=== PATIENT | female | born 1955 | race Asian ===

== ENCOUNTER 2017-02-24 12:13 | Outpatient (CLI) | payer OTHER ==
[2017-02-24 13:51] LABS: POTASSIUM 3.8 mmol/L (3.6-5.2); SODIUM 134 mmol/L (136-145)
== END 2017-02-24 13:13 | disposition home or self-care (01) ==
LOC: LABW 12:13
PROVIDERS: Physician Assistant
DX: E78.4 Other hyperlipidemia (principal); E87.6 Hypokalemia; E03.8 Other specified hypothyroidism
CPT/HCPCS: 36415; 80053; 80061; 84439; 84443

== ENCOUNTER 2017-06-13 08:50 | Outpatient (CLI) | payer OTHER ==
[2017-06-13 09:58] LABS: POTASSIUM 3.9 mmol/L (3.6-5.2); SODIUM 137 mmol/L (136-145)
[2017-06-13 10:20] LABS: PLATELET COUNT 343 K/uL (152-353)
== END 2017-06-13 09:50 | disposition home or self-care (01) ==
LOC: LABW 08:50
PROVIDERS: Obstetrics & Gynecology
DX: I10 Essential (primary) hypertension (principal); Z79.899 Other long term (current) drug therapy; Z51.81 Encounter for therapeutic drug level monitoring
CPT/HCPCS: 36415; 80053; 80061; 82670; 83001; 83090; 84144; 84402; 84403; 85027

== ENCOUNTER 2017-06-24 12:29 | Outpatient (CLI) | payer OTHER | END 2017-06-24 19:08 | disposition home or self-care (01) | LOC: RAD 12:29 | DX: M25.511 Pain in right shoulder (principal) ==

== ENCOUNTER 2017-06-26 08:33 | Outpatient (CLI) | payer OTHER | END 2017-06-26 19:55 | disposition home or self-care (01) | LOC: MAMMO 08:33 | DX: Z12.31 Encounter for screening mammogram for malignant neoplasm of breast (principal) | CPT/HCPCS: G0202-TC ==

== ENCOUNTER 2017-07-14 10:50 | Outpatient (CLI) | payer OTHER | END 2017-07-14 19:36 | disposition home or self-care (01) | LOC: MAMMO 10:50 | DX: R92.8 Other abnormal and inconclusive findings on diagnostic imaging of breast (principal) | CPT/HCPCS: G0206-TC ==

== ENCOUNTER 2017-09-17 11:59 | Outpatient (CLI) | payer OTHER | END 2017-09-17 13:00 | disposition home or self-care (01) | LOC: LABW 11:59 | DX: M10.071 Idiopathic gout, right ankle and foot (principal) | CPT/HCPCS: 36415; 84550; 85651 ==

== ENCOUNTER 2017-10-22 09:09 | Outpatient (CLI) | payer OTHER ==
[2017-10-22 09:41] LABS: PLATELET COUNT 350 K/uL (152-353)
[2017-10-22 09:57] LABS: POTASSIUM 3.5 mmol/L (3.6-5.2); SODIUM 139 mmol/L (136-145)
== END 2017-10-22 19:33 | disposition home or self-care (01) ==
LOC: LABW 09:09
PROVIDERS: Podiatrist
DX: Z01.818 Encounter for other preprocedural examination (principal); Z51.81 Encounter for therapeutic drug level monitoring
CPT/HCPCS: 36415; 80053; 85002; 85027; 93005

== ENCOUNTER 2017-12-12 11:18 | Outpatient (CLI) | payer OTHER | END 2017-12-12 19:31 | disposition home or self-care (01) | LOC: LABW 11:18 | DX: E03.8 Other specified hypothyroidism (principal) | CPT/HCPCS: 36415; 84439; 84443 ==

== ENCOUNTER 2018-09-03 09:14 | Emergency (ER) | payer OTHER ==
[~2018-09-03] VITALS: Ht 160 cm; Wt 81.6 kg
[2018-09-03 09:20] VITALS: TEMP 98.2
[2018-09-03 10:04] LABS: PLATELET COUNT 205 K/uL (152-353)
[2018-09-03 10:20] LABS: POTASSIUM 3.4 mmol/L (3.6-5.2)
[2018-09-03 10:30] VITALS: BP 125/79
== END 2018-09-03 11:30 | disposition home or self-care (01) ==
LOC: ED 09:14
DX: L02.818 Cutaneous abscess of other sites (principal)
CPT/HCPCS: 36415; 80053; 85027; 96372; 99283; J0696

== ENCOUNTER 2018-09-25 09:51 | Outpatient (CLI) | payer OTHER | END 2018-09-25 21:12 | disposition home or self-care (01) | LOC: LABW 09:51 | DX: K64.0 First degree hemorrhoids (principal) | CPT/HCPCS: 82272 ==

== ENCOUNTER 2018-09-29 13:00 | Outpatient (CLI) | payer OTHER ==
[2018-09-29 13:24] LABS: PLATELET COUNT 261 K/uL (152-353)
[2018-09-29 13:27] LABS: POTASSIUM 3.4 mmol/L (3.6-5.2)
== END 2018-09-29 22:20 | disposition home or self-care (01) ==
LOC: LABW 13:00
PROVIDERS: Surgery Plastic and Reconstructive Surgery
DX: Z01.818 Encounter for other preprocedural examination (principal); Z79.899 Other long term (current) drug therapy; D51.3 Other dietary vitamin B12 deficiency anemia; E55.9 Vitamin D deficiency, unspecified; Z86.39 Personal history of other endocrine, nutritional and metabolic disease
CPT/HCPCS: 36415; 80048; 82306; 82607; 83735; 84630; 85027

== ENCOUNTER 2018-11-09 13:25 | Outpatient (CLI) | payer OTHER | END 2018-11-09 19:13 | disposition home or self-care (01) | LOC: LAB 13:25 | DX: N39.0 Urinary tract infection, site not specified (principal) | CPT/HCPCS: 87077; 87086; 87088; 87185 ==

== ENCOUNTER 2018-11-21 17:02 | Outpatient (CLI) | payer OTHER | END 2018-11-21 17:06 | disposition short-term general hospital (02) | LOC: AMB 17:02 | DX: M54.89 Other dorsalgia (principal); M54.2 Cervicalgia; V49.9XXA Car occupant (driver) (passenger) injured in unspecified traffic accident, initial encounter; Y93.89 Activity, other specified; Y92.89 Other specified places as the place of occurrence of the external cause | CPT/HCPCS: A0425; A0429 ==

== ENCOUNTER 2018-11-21 17:08 | Emergency (ER) | payer OTHER ==
[~2018-11-21] VITALS: Ht 160 cm; Wt 81.6 kg
[2018-11-21 18:38] VITALS: BP 143/83; TEMP 97.9
== END 2018-11-21 18:37 | disposition home or self-care (01) ==
LOC: ED 17:08
DX: M54.2 Cervicalgia (principal); M54.5 Low back pain; M62.830 Muscle spasm of back; V89.2XXA Person injured in unspecified motor-vehicle accident, traffic, initial encounter; Y92.89 Other specified places as the place of occurrence of the external cause
CPT/HCPCS: 99283

== ENCOUNTER 2018-12-25 10:20 | Outpatient (CLI) | payer OTHER ==
[2018-12-25 10:49] LABS: PLATELET COUNT 315 K/uL (152-353)
[2018-12-25 11:14] LABS: POTASSIUM 3.9 mmol/L (3.6-5.2)
== END 2018-12-25 22:49 | disposition home or self-care (01) ==
LOC: LABW 10:20
PROVIDERS: Physician Assistant
DX: E87.6 Hypokalemia (principal); E03.9 Hypothyroidism, unspecified; I10 Essential (primary) hypertension; Z79.899 Other long term (current) drug therapy
CPT/HCPCS: 36415; 80053; 80061; 82306; 83036; 83735; 84439; 84443; 85027

== ENCOUNTER 2019-01-01 12:57 | Emergency (ER) | payer OTHER ==
[~2019-01-01] VITALS: Ht 160 cm; Wt 82.1 kg
[2019-01-01 13:10] VITALS: BP 143/86; TEMP 98.1
== END 2019-01-01 14:03 | disposition home or self-care (01) ==
LOC: ED 12:57
DX: M54.5 Low back pain (principal); R10.30 Lower abdominal pain, unspecified
CPT/HCPCS: 99281

== ENCOUNTER 2019-01-22 09:28 | Outpatient (CLI) | payer OTHER | END 2019-01-22 22:21 | disposition home or self-care (01) | LOC: LAB 09:28 → LABW 09:28 → LAB 22:21 | DX: N39.0 Urinary tract infection, site not specified (principal) | CPT/HCPCS: 87086; 87088 ==

== ENCOUNTER 2019-02-09 14:27 | Outpatient (CLI) | payer OTHER | END 2019-02-09 22:55 | disposition home or self-care (01) | LOC: LAB 14:27 | DX: R30.0 Dysuria (principal) | CPT/HCPCS: 81000; 87086; 87088 ==

== ENCOUNTER 2019-04-03 08:52 | Outpatient (CLI) | payer OTHER ==
[2019-04-03 09:20] LABS: PLATELET COUNT 262 K/uL (152-353)
[2019-04-03 09:42] LABS: POTASSIUM 3.5 mmol/L (3.6-5.2)
== END 2019-04-03 19:33 | disposition home or self-care (01) ==
LOC: LABW 08:52
PROVIDERS: Obstetrics & Gynecology
DX: Z00.00 Encounter for general adult medical examination without abnormal findings (principal); Z13.29 Encounter for screening for other suspected endocrine disorder; Z13.228 Encounter for screening for other metabolic disorders; Z13.220 Encounter for screening for lipoid disorders; Z13.6 Encounter for screening for cardiovascular disorders; Z79.899 Other long term (current) drug therapy
CPT/HCPCS: 36415; 80053; 80061; 82670; 83001; 83090; 84144; 84402; 84403; 85027

== ENCOUNTER 2019-07-23 15:33 | Emergency (ER) | payer OTHER ==
[~2019-07-23] VITALS: Ht 160 cm; Wt 82.1 kg
[2019-07-23 16:28] LABS: PLATELET COUNT 245 K/uL (152-353)
[2019-07-23 16:43] LABS: POTASSIUM 3.2 mmol/L (3.6-5.2)
[2019-07-23 17:56] VITALS: BP 142/78; TEMP 98.2
== END 2019-07-23 17:56 | disposition home or self-care (01) ==
LOC: ED 15:33
PROVIDERS: Family Medicine
DX: N39.0 Urinary tract infection, site not specified (principal); E87.6 Hypokalemia
CPT/HCPCS: 80053; 81000; 85027; 87077; 87086; 87088; 87186; 99283

== ENCOUNTER 2019-08-13 08:08 | Outpatient (CLI) | payer OTHER ==
[2019-08-13 08:48] LABS: PLATELET COUNT 314 K/uL (152-353)
[2019-08-13 09:06] LABS: POTASSIUM 3.7 mmol/L (3.6-5.2)
== END 2019-08-13 19:18 | disposition home or self-care (01) ==
LOC: LABW 08:08
PROVIDERS: Internal Medicine
DX: I10 Essential (primary) hypertension (principal); E78.00 Pure hypercholesterolemia, unspecified; E55.9 Vitamin D deficiency, unspecified; E03.8 Other specified hypothyroidism; Z11.59 Encounter for screening for other viral diseases; R82.998 Other abnormal findings in urine
CPT/HCPCS: 36415; 80053; 80061; 81000; 82306; 84439; 84443; 85027; 86803; 87086; 87088

== ENCOUNTER 2019-08-24 14:20 | Outpatient (CLI) | payer OTHER | END 2019-08-24 23:30 | disposition home or self-care (01) | LOC: MAMMO 14:20 | DX: C50.411 Malignant neoplasm of upper-outer quadrant of right female breast (principal); N64.59 Other signs and symptoms in breast ==

== ENCOUNTER 2019-10-04 15:10 | Outpatient (CLI) | payer OTHER | END 2019-10-04 19:19 | disposition home or self-care (01) | LOC: LABW 15:10 | DX: E03.8 Other specified hypothyroidism (principal) | CPT/HCPCS: 36415; 84439; 84443 ==

== ENCOUNTER 2019-11-21 12:41 | Outpatient (CLI) | payer OTHER | END 2019-11-21 19:20 | disposition home or self-care (01) | LOC: LAB 12:41 | DX: K64.0 First degree hemorrhoids (principal) | CPT/HCPCS: 82272 ==

== ENCOUNTER 2019-12-08 09:10 | Outpatient (CLI) | payer OTHER | END 2019-12-08 20:48 | disposition home or self-care (01) | LOC: LABW 09:10 | PROVIDERS: Nurse Practitioner Adult Health | DX: E78.2 Mixed hyperlipidemia (principal); Z79.899 Other long term (current) drug therapy | CPT/HCPCS: 36415; 80061; 80076 ==

== ENCOUNTER 2019-12-18 09:13 | Emergency (ER) | payer OTHER ==
[~2019-12-18] VITALS: Ht 160 cm; Wt 82.1 kg
[2019-12-18 09:21] VITALS: TEMP 97
[2019-12-18] MEDS ORDERED: K-TABS10 MEQ PO (09:27)
[2019-12-18] MEDS ORDERED: VENLAFAXINE75 M2 PO (09:28)
[2019-12-18] MEDS ORDERED: MOBIC15 MG PO (09:28)
[2019-12-18] MEDS ORDERED: ACID REDUCER20 MG PO (09:29)
[2019-12-18] MEDS ORDERED: ALLERCLEAR10 MG PO (09:29)
[2019-12-18] MEDS ORDERED: OMEGA 3 500 5001 CAP PO (09:42)
[2019-12-18] MEDS ORDERED: ZIPRASIDONE HYD40 MG PO (09:42)
[2019-12-18] MEDS ORDERED: CLON0.5T36 PO (09:43)
[2019-12-18] MEDS ORDERED: AMLODIPINE BESYLATE PO (09:43)
[2019-12-18] MEDS ORDERED: LINZESS145 MCG PO (09:44)
[2019-12-18] MEDS ORDERED: LEVO0.0218 PO (09:44)
[2019-12-18] MEDS ORDERED: UNITH DIRECT75 MCG PO (09:45)
[2019-12-18] MEDS ORDERED: MAGNESIUM400 M1 PO (09:46)
[2019-12-18] MEDS ORDERED: FLUOXETINE40 MG PO (09:47)
[2019-12-18] MEDS ORDERED: VITAMIN D32000 UNIT PO (09:48)
[2019-12-18] MEDS ORDERED: AMINOFEN500 MG PO (09:48)
[2019-12-18] MEDS ORDERED: LIPITOR40 MG PO (09:49)
[2019-12-18] MEDS ORDERED: LO-DOSE ASA81 MG PO (09:49)
[2019-12-18] MEDS ORDERED: PANTOPRAZOLE 40MG TA PO (09:50)
[2019-12-18] MEDS ORDERED: 24HR ALLERGY R180 MG PO (09:50)
[2019-12-18] MEDS ORDERED: [UNRECOGNIZED DRUG - CODE] PO (09:51)
[2019-12-18 11:15] VITALS: BP 133/88
== END 2019-12-18 11:15 | disposition home or self-care (01) ==
LOC: ED 09:13
DX: R25.1 Tremor, unspecified (principal); R10.13 Epigastric pain
CPT/HCPCS: 81000; 87088; 99282

== ENCOUNTER 2020-03-07 09:55 | Outpatient (CLI) | payer OTHER ==
[~2020-03-07 09:55] MED LIST: 24HR ALLERGY R180 MG PO; ACID REDUCER20 MG PO; ALLERCLEAR10 MG PO; AMINOFEN500 MG PO; AMLODIPINE BESYLATE PO; CLON0.5T36 PO; FLUOXETINE40 MG PO; K-TABS10 MEQ PO; LEVO0.0218 PO; LINZESS145 MCG PO; LIPITOR40 MG PO; LO-DOSE ASA81 MG PO; MAGNESIUM400 M1 PO; MOBIC15 MG PO; OMEGA 3 500 5001 CAP PO; PANTOPRAZOLE 40MG TA PO; UNITH DIRECT75 MCG PO; VENLAFAXINE75 M2 PO; VITAMIN D32000 UNIT PO; ZIPRASIDONE HYD40 MG PO; [UNRECOGNIZED DRUG - CODE] PO
== END 2020-03-07 21:10 | disposition home or self-care (01) ==
LOC: LABW 09:55
PROVIDERS: Nurse Practitioner Adult Health
DX: E78.2 Mixed hyperlipidemia (principal); Z79.899 Other long term (current) drug therapy
CPT/HCPCS: 36415; 80061; 80076

== ENCOUNTER 2020-06-14 09:25 | Outpatient (CLI) | payer OTHER ==
[2020-06-14 10:17] LABS: PLATELET COUNT 247 K/uL (152-353)
[2020-06-14 10:39] LABS: POTASSIUM 3.7 mmol/L (3.6-5.2)
== END 2020-06-14 19:02 | disposition home or self-care (01) ==
LOC: LABW 09:25
PROVIDERS: Internal Medicine
DX: I10 Essential (primary) hypertension (principal); E03.8 Other specified hypothyroidism
CPT/HCPCS: 36415; 80053; 84439; 84443; 85027

== ENCOUNTER 2020-08-25 12:43 | Outpatient (CLI) | payer OTHER | END 2020-08-26 03:40 | disposition home or self-care (01) | LOC: MAMMO 12:43 | DX: C50.411 Malignant neoplasm of upper-outer quadrant of right female breast (principal) | CPT/HCPCS: G0279 ==

== ENCOUNTER 2020-08-30 10:31 | Outpatient (CLI) | payer OTHER | END 2020-08-30 22:56 | disposition home or self-care (01) | LOC: LABW 10:31 | PROVIDERS: Nurse Practitioner Adult Health | DX: E78.2 Mixed hyperlipidemia (principal); Z79.899 Other long term (current) drug therapy | CPT/HCPCS: 36415; 80061; 80076 ==

== ENCOUNTER 2020-08-31 11:24 | Outpatient (CLI) | payer OTHER | END 2020-08-31 19:30 | disposition home or self-care (01) | LOC: RAD 11:24 | DX: R10.84 Generalized abdominal pain (principal) ==

== ENCOUNTER 2020-09-01 10:05 | Outpatient (CLI) | payer OTHER ==
[2020-09-01 10:25] LABS: PLATELET COUNT 261 K/uL (152-353)
[2020-09-01 10:32] LABS: POTASSIUM 3.4 mmol/L (3.6-5.2)
== END 2020-09-01 19:01 | disposition home or self-care (01) ==
LOC: LABW 10:05
PROVIDERS: Internal Medicine
DX: R10.84 Generalized abdominal pain (principal)
CPT/HCPCS: 36415; 80053; 82150; 83690; 85027; 86318

== ENCOUNTER 2020-09-04 12:22 | Outpatient (CLI) | payer OTHER | END 2020-09-04 19:13 | disposition home or self-care (01) | LOC: LAB 12:22 | DX: R10.84 Generalized abdominal pain (principal) | CPT/HCPCS: 81000 ==

== ENCOUNTER 2020-09-07 10:07 | Outpatient (CLI) | payer OTHER | END 2020-09-07 22:15 | disposition home or self-care (01) | LOC: CT 10:07 | DX: R10.84 Generalized abdominal pain (principal) | CPT/HCPCS: Q9963 ==

== ENCOUNTER 2020-09-12 10:19 | Outpatient (CLI) | payer OTHER | END 2020-09-12 22:31 | disposition home or self-care (01) | LOC: CT 10:19 | DX: Z13.820 Encounter for screening for osteoporosis (principal); R16.0 Hepatomegaly, not elsewhere classified; N95.8 Other specified menopausal and perimenopausal disorders | CPT/HCPCS: Q9963 ==

== ENCOUNTER 2021-02-10 09:16 | Emergency (ER) | payer OTHER ==
[~2021-02-10] VITALS: Ht 160 cm; Wt 88.9 kg
[2021-02-10 09:23] VITALS: TEMP 99
[2021-02-10 12:35] VITALS: BP 129/91
== END 2021-02-10 12:35 | disposition home or self-care (01) ==
LOC: ED 09:16
DX: R22.0 Localized swelling, mass and lump, head (principal); Z98.890 Other specified postprocedural states
CPT/HCPCS: 36415; 96360; 96361; 96375; 99284; J1100; J1200

== ENCOUNTER 2021-02-19 07:14 | Outpatient (CLI) | payer OTHER | END 2021-02-19 21:32 | disposition home or self-care (01) | LOC: LABW 07:14 | PROVIDERS: ATTEND Internal Medicine | DX: R73.9 Hyperglycemia, unspecified (principal) | CPT/HCPCS: 36415; 82951; 82952 ==

== ENCOUNTER 2021-03-06 09:48 | Outpatient (CLI) | payer OTHER | END 2021-03-06 21:08 | disposition home or self-care (01) | LOC: LABW 09:48 | PROVIDERS: ATTEND Nurse Practitioner Adult Health | DX: E78.2 Mixed hyperlipidemia (principal); Z79.899 Other long term (current) drug therapy | CPT/HCPCS: 36415; 80061; 80076 ==

== ENCOUNTER 2021-04-26 10:01 | Emergency (ER) | payer OTHER ==
[~2021-04-26] VITALS: Ht 160 cm; Wt 88.9 kg
[2021-04-26 10:11] VITALS: BP 124/78; TEMP 96.2
== END 2021-04-26 11:47 | disposition home or self-care (01) ==
LOC: ED 10:01
DX: J20.9 Acute bronchitis, unspecified (principal); T78.2XXA Anaphylactic shock, unspecified, initial encounter; T78.49XA Other allergy, initial encounter; F17.210 Nicotine dependence, cigarettes, uncomplicated
CPT/HCPCS: 96372; 99283; J1020

== ENCOUNTER 2021-07-04 10:45 | Outpatient (CLI) | payer OTHER ==
[2021-07-04 11:26] LABS: PLATELET COUNT 257 K/uL (152-353)
[2021-07-04 11:36] LABS: POTASSIUM 3.7 mmol/L (3.6-5.2)
== END 2021-07-04 18:59 | disposition home or self-care (01) ==
LOC: LABW 10:45
PROVIDERS: ATTEND Internal Medicine
DX: R73.03 Prediabetes (principal); E03.8 Other specified hypothyroidism; I10 Essential (primary) hypertension
CPT/HCPCS: 36415; 80053; 80061; 81000; 83036; 84439; 84443; 85027

== ENCOUNTER 2021-08-27 08:58 | Outpatient (CLI) | payer OTHER | END 2021-08-27 21:06 | disposition home or self-care (01) | LOC: LABW 08:58 → MAMMO 09:00 → LABW 21:06 | PROVIDERS: ATTEND Nurse Practitioner Family | DX: C50.411 Malignant neoplasm of upper-outer quadrant of right female breast (principal); E78.5 Hyperlipidemia, unspecified | CPT/HCPCS: 36415; 80061; 80076; G0279 ==

== ENCOUNTER 2022-01-15 15:20 | Emergency (ER) | payer OTHER ==
[~2022-01-15] VITALS: Ht 160 cm; Wt 83.9 kg
[2022-01-15 16:05] LABS: POTASSIUM 3.3 mmol/L (3.6-5.2)
[2022-01-15 16:09] LABS: PLATELET COUNT 275 K/uL (152-353)
[2022-01-15 19:38] VITALS: BP 146/94; TEMP 98.7
== END 2022-01-15 19:40 | disposition home or self-care (01) ==
LOC: ED 15:20
PROVIDERS: Hospitalist
DX: R10.12 Left upper quadrant pain (principal); K21.9 Gastro-esophageal reflux disease without esophagitis; R31.9 Hematuria, unspecified
CPT/HCPCS: 36415; 80053; 81000; 83690; 85027; 96360; 96375; 99284; J1170; J1885; J2405

== ENCOUNTER 2022-01-27 10:13 | Emergency (ER) | payer OTHER ==
[~2022-01-27] VITALS: Ht 160 cm; Wt 86.6 kg
[2022-01-27 10:25] VITALS: TEMP 98.8
[2022-01-27 12:35] VITALS: BP 128/78
== END 2022-01-27 12:37 | disposition home or self-care (01) ==
LOC: ED 10:13
DX: M16.0 Bilateral primary osteoarthritis of hip (principal)
CPT/HCPCS: 96372; 99283; J1885

== ENCOUNTER 2022-03-22 13:50 | Outpatient (CLI) | payer OTHER | END 2022-03-22 18:58 | disposition home or self-care (01) | LOC: MRI 13:50 | PROVIDERS: ATTEND Internal Medicine Gastroenterology | DX: R93.5 Abnormal findings on diagnostic imaging of other abdominal regions, including retroperitoneum (principal) | CPT/HCPCS: 36415; 82565; 84520; A9576 ==

== ENCOUNTER 2022-05-25 09:30 | Outpatient (CLI) | payer OTHER ==
[2022-05-25 10:04] LABS: PLATELET COUNT 273 K/uL (152-353)
[2022-05-25 10:24] LABS: POTASSIUM 3.6 mmol/L (3.6-5.2)
== END 2022-05-25 19:44 | disposition home or self-care (01) ==
LOC: LABW 09:30
PROVIDERS: ATTEND Internal Medicine
DX: E03.8 Other specified hypothyroidism (principal); I10 Essential (primary) hypertension
CPT/HCPCS: 36415; 80053; 80061; 81002; 84439; 84443; 85027

== ENCOUNTER 2022-08-30 13:19 | Outpatient (CLI) | payer OTHER | END 2022-08-30 19:06 | disposition home or self-care (01) | LOC: MAMMO 13:19 | PROVIDERS: ATTEND Nurse Practitioner Family | DX: C50.411 Malignant neoplasm of upper-outer quadrant of right female breast (principal) | CPT/HCPCS: G0279 ==

== ENCOUNTER 2022-09-05 09:33 | Outpatient (CLI) | payer OTHER | END 2022-09-05 19:40 | disposition home or self-care (01) | LOC: LABW 09:33 | PROVIDERS: ATTEND Nurse Practitioner Adult Health | DX: E78.2 Mixed hyperlipidemia (principal) | CPT/HCPCS: 36415; 80061; 80076 ==

== ENCOUNTER 2022-12-14 07:31 | Outpatient (CLI) | payer OTHER ==
[2022-12-14 09:28] LABS: PLATELET COUNT 300 K/uL (152-353)
[2022-12-14 09:43] LABS: POTASSIUM 3.5 mmol/L (3.6-5.2)
== END 2022-12-14 21:42 | disposition home or self-care (01) ==
LOC: LABW 07:31
PROVIDERS: ATTEND Internal Medicine
DX: I10 Essential (primary) hypertension (principal); E55.9 Vitamin D deficiency, unspecified; E03.8 Other specified hypothyroidism
CPT/HCPCS: 36415; 80053; 80061; 81002; 82306; 84439; 84443; 85027

== ENCOUNTER 2023-02-03 10:29 | Outpatient (CLI) | payer OTHER | END 2023-02-03 19:03 | disposition home or self-care (01) | LOC: RAD 10:29 | PROVIDERS: ATTEND Internal Medicine | DX: Z13.820 Encounter for screening for osteoporosis (principal); N95.8 Other specified menopausal and perimenopausal disorders ==

== ENCOUNTER 2023-03-23 09:05 | Outpatient (CLI) | payer OTHER | END 2023-03-23 18:49 | disposition home or self-care (01) | LOC: LABW 09:05 | PROVIDERS: ATTEND Nurse Practitioner | DX: E78.2 Mixed hyperlipidemia (principal); Z51.81 Encounter for therapeutic drug level monitoring; Z79.899 Other long term (current) drug therapy | CPT/HCPCS: 36415; 80061; 80076 ==

== ENCOUNTER 2023-05-13 10:58 | Outpatient (CLI) | payer OTHER | END 2023-05-13 19:10 | disposition home or self-care (01) | LOC: RESP 10:58 | PROVIDERS: ATTEND Nurse Practitioner | DX: I10 Essential (primary) hypertension (principal); E78.2 Mixed hyperlipidemia; I34.1 Nonrheumatic mitral (valve) prolapse; I65.23 Occlusion and stenosis of bilateral carotid arteries; I36.1 Nonrheumatic tricuspid (valve) insufficiency; I34.0 Nonrheumatic mitral (valve) insufficiency; Z72.0 Tobacco use; Z68.33 Body mass index [BMI] 33.0-33.9, adult ==

== ENCOUNTER 2023-05-21 17:17 | Emergency (ER) | payer OTHER ==
[~2023-05-21] VITALS: Ht 160 cm; Wt 86.2 kg
[2023-05-21 17:28] VITALS: TEMP 97.2
[2023-05-21 21:16] VITALS: BP 141/70
== END 2023-05-21 21:15 | disposition home or self-care (01) ==
LOC: ED 17:17
DX: K59.00 Constipation, unspecified (principal); R10.9 Unspecified abdominal pain
CPT/HCPCS: 81002; 99283

== ENCOUNTER 2023-05-31 08:20 | Outpatient (CLI) | payer OTHER ==
[2023-05-31 08:34] LABS: PLATELET COUNT 305 K/uL (152-353)
[2023-05-31 08:48] LABS: POTASSIUM 3.6 mmol/L (3.6-5.2)
== END 2023-05-31 19:46 | disposition home or self-care (01) ==
LOC: LABW 08:20
PROVIDERS: ATTEND Internal Medicine
DX: E55.9 Vitamin D deficiency, unspecified (principal); E03.8 Other specified hypothyroidism; I10 Essential (primary) hypertension
CPT/HCPCS: 36415; 80053; 80061; 81002; 82306; 84439; 84443; 85027

== ENCOUNTER 2023-09-01 14:01 | Outpatient (CLI) | payer OTHER | END 2023-09-01 19:18 | disposition home or self-care (01) | LOC: MAMMO 14:01 | PROVIDERS: ATTEND Internal Medicine | DX: Z12.31 Encounter for screening mammogram for malignant neoplasm of breast (principal) ==